=== PATIENT | male | born 1950 | race Caucasian/White ===

== ENCOUNTER 2020-01-22 14:43 | Emergency (ER) | payer BC ==
[~2020-01-22] VITALS: Ht 177.8 cm; Wt 99.0 kg
[2020-01-22 14:49] VITALS: BP 118/76
[2020-01-22] MEDS ORDERED: DOXY100C76 PO (17:04)
== END 2020-01-22 17:25 | disposition home or self-care (01) ==
LOC: ER 14:44
DX: L08.9 Local infection of the skin and subcutaneous tissue, unspecified (principal); B95.7 Other staphylococcus as the cause of diseases classified elsewhere; Z85.828 Personal history of other malignant neoplasm of skin; Z79.2 Long term (current) use of antibiotics
CPT/HCPCS: 99283